=== PATIENT | female | born 1970 | race Caucasian/White ===

== ENCOUNTER 2022-06-11 15:11 | Emergency (ER) | payer OTHER ==
[2022-06-11 15:23] VITALS: BP 133/87; PULSE 63; RESP 19; TEMP 97.9; BMI 27.1
== END 2022-06-11 17:30 | disposition home or self-care (01) ==
LOC: JERFT 15:11
DX: S61.213A Laceration without foreign body of left middle finger without damage to nail, initial encounter (principal)
CPT/HCPCS: 99283-25